=== PATIENT | male | born 1960 | race Caucasian/White ===

== ENCOUNTER 2021-09-18 11:10 | Outpatient (CLI) | payer OTHER | END 2021-09-18 11:11 | disposition home or self-care (01) | LOC: RAD 11:10 | PROVIDERS: ATTEND Family Medicine | DX: F17.200 Nicotine dependence, unspecified, uncomplicated (principal) | CPT/HCPCS: 71046 ==

== ENCOUNTER 2023-07-05 11:32 | Outpatient (CLI) | payer BC | END 2023-07-05 11:33 | disposition home or self-care (01) | LOC: BICRAD 11:32 | PROVIDERS: ATTEND Family Medicine | DX: M54.2 Cervicalgia (principal); M47.812 Spondylosis without myelopathy or radiculopathy, cervical region | CPT/HCPCS: 72040 ==

== ENCOUNTER 2025-04-29 15:17 | Inpatient (IN) | payer BC ==
[~2025-04-29 15:17] MED LIST: Iopamidol 370 76% 100 ML VIAL ONE
[2025-04-29] MEDS ORDERED: Heparin 25,000 UNITS/D5W 500 ml bag ONE (15:30)
[2025-04-29 15:36] LABS: #Basophils 0.05 10x3/uL (0.0-0.2); #Eosinophils 0.36 10x3/uL (0.0-0.7); #Monocytes 0.58 10x3/uL (0.11-0.59); #Neutrophils 4.20 10x3/uL (1.40-6.50); %Basophils 0.6 % (0.0-1.0); %Eosinophils 4.7 % (0.0-10.0); %Lymphocytes 32.6 % (21.0-51.0); %Monocytes 7.5 % (0.0-10.0); %Neutrophils 54.5 % (42.0-75.0); Hematocrit 42.2 % (42.0-52.0); Hemoglobin 14.3 g/dL (14.0-18.0); Mean Corpuscular Hemoglobin 29.7 pg (27.0-31.0); Mean Corpuscular Volume 87.7 fL (78.0-98.0); Platelet Count 266 10x3/uL (130-400); Red Blood Cell (RBC) Count 4.81 mill/uL (4.70-6.10); White Blood Cell (WBC) Count 7.72 10x3/uL (4.8-10.8)
[2025-04-29 15:54] LABS: ALT (SGPT) 21 U/L (Less than 45); AST (SGOT) 21 U/L (11-34); Albumin 4.0 g/dL (3.1-4.5); Alkaline Phosphatase 77 U/L (40-110); Anion Gap 14 mmol/L (10-20); BUN (Urea Nitrogen) 24 mg/dL (8.4-25.7); Bilirubin, Total 0.6 mg/dL (0.3-1.2); Calc. Creatinine Clearance 0 mL/min (70-130); Calcium 9.2 mg/dL (7.8-10.44); Carbon Dioxide 23 mmol/L (23-31); Chloride 107 mmol/L (98-107); Globulin 2.9 g/dL (2.4-3.5); Glucose 112 mg/dL (80-115); Potassium 3.7 mmol/L (3.5-5.1); Sodium 140 mmol/L (136-145)
[2025-04-29 16:03] LABS: INR-International Normal Ratio 1.1; Prothrombin Time 14.3 sec (12.0-14.7)
[2025-04-29 16:21] LABS: PTT Greater than 250.0 sec (22.9-36.1)
[2025-04-29] MEDS ORDERED: TICAGRELOR 90 MG TABLET ONE (16:28)
[2025-04-29] MEDS ORDERED: Milk Of Magnesia 30 ML UDCUP PO PRN (16:33)
[2025-04-29 17:21] VITALS: BMI 27.1
[2025-04-29] MEDS ORDERED: Melatonin 3 MG TAB PO PRN (18:24)
[2025-04-29] MEDS ORDERED: Acetaminophen 325 MG TAB PO PRN (18:24)
[2025-04-29] MEDS ORDERED: Calcium Carbonate 500 MG ChewTAB PO PRN (18:24)
[2025-04-29] MEDS ORDERED: Senokot S 8.6-50 MG TAB PO PRN (18:24)
[2025-04-29] MEDS ORDERED: Ondansetron PF 4 MG/2 ML Vial IVP PRN (18:24)
[2025-04-29] MEDS: Famotidine 20 MG TAB PO SCH (20:42)
[2025-04-29] MEDS: TICAGRELOR 90 MG TABLET PO SCH (20:42)
[2025-04-30 03:28] LABS: #Basophils 0.06 10x3/uL (0.0-0.2); #Eosinophils 0.50 10x3/uL (0.0-0.7); #Monocytes 0.84 10x3/uL (0.11-0.59); #Neutrophils 6.04 10x3/uL (1.40-6.50); %Basophils 0.6 % (0.0-1.0); %Eosinophils 5.0 % (0.0-10.0); %Lymphocytes 25.7 % (21.0-51.0); %Monocytes 8.4 % (0.0-10.0); %Neutrophils 60.1 % (42.0-75.0); Hematocrit 39.7 % (42.0-52.0); Hemoglobin 13.1 g/dL (14.0-18.0); Mean Corpuscular Hemoglobin 30.0 pg (27.0-31.0); Mean Corpuscular Volume 90.8 fL (78.0-98.0); Platelet Count 231 10x3/uL (130-400); Red Blood Cell (RBC) Count 4.37 mill/uL (4.70-6.10); White Blood Cell (WBC) Count 10.04 10x3/uL (4.8-10.8)
[2025-04-30 04:15] LABS: ALT (SGPT) 20 U/L (Less than 45); AST (SGOT) 41 U/L (11-34); Albumin 3.5 g/dL (3.1-4.5); Alkaline Phosphatase 67 U/L (40-110); Anion Gap 13 mmol/L (10-20); BUN (Urea Nitrogen) 16 mg/dL (8.4-25.7); Bilirubin, Total 0.5 mg/dL (0.3-1.2); Calc. Creatinine Clearance 94 mL/min (70-130); Calcium 8.4 mg/dL (7.8-10.44); Carbon Dioxide 20 mmol/L (23-31); Chloride 112 mmol/L (98-107); Globulin 2.6 g/dL (2.4-3.5); Glucose 110 mg/dL (80-115); Potassium 3.7 mmol/L (3.5-5.1); Sodium 141 mmol/L (136-145)
[2025-04-30] MEDS: Sacubitril 24MG/Valsartan 26 MG TAB PO SCH (08:53)
[2025-04-30] MEDS: Metoprolol Succinate XL 25 MG ER.TAB PO SCH (08:53)
[2025-04-30] MEDS: Dapagliflozin Propanediol 10 MG TAB PO SCH (08:53)
[2025-04-30] MEDS: Enoxaparin 40 MG (0.4 mL) SYRINGE SC SCH (08:54)
[2025-04-30] MEDS: Aspirin 81 mg Enteric Coated Tablet PO SCH (08:54)
[2025-04-30] MEDS ORDERED: Lisinopril 2.5 MG TAB PO SCH (09:00)
[2025-04-30 11:14] VITALS: BMI 24.7
[2025-05-01 05:20] LABS: #Basophils 0.05 10x3/uL (0.0-0.2); #Eosinophils 0.40 10x3/uL (0.0-0.7); #Monocytes 0.89 10x3/uL (0.11-0.59); #Neutrophils 6.14 10x3/uL (1.40-6.50); %Basophils 0.5 % (0.0-1.0); %Eosinophils 4.0 % (0.0-10.0); %Lymphocytes 24.5 % (21.0-51.0); %Monocytes 9.0 % (0.0-10.0); %Neutrophils 61.8 % (42.0-75.0); Hematocrit 42.8 % (42.0-52.0); Hemoglobin 14.3 g/dL (14.0-18.0); Mean Corpuscular Hemoglobin 29.5 pg (27.0-31.0); Mean Corpuscular Volume 88.4 fL (78.0-98.0); Platelet Count 265 10x3/uL (130-400); Red Blood Cell (RBC) Count 4.84 mill/uL (4.70-6.10); White Blood Cell (WBC) Count 9.94 10x3/uL (4.8-10.8)
[2025-05-01 05:36] LABS: Anion Gap 13 mmol/L (10-20); BUN (Urea Nitrogen) 15 mg/dL (8.4-25.7); Calc. Creatinine Clearance 87 mL/min (70-130); Calcium 9.0 mg/dL (7.8-10.44); Carbon Dioxide 23 mmol/L (23-31); Chloride 109 mmol/L (98-107); Glucose 97 mg/dL (80-115); Potassium 3.9 mmol/L (3.5-5.1); Sodium 141 mmol/L (136-145)
[2025-05-01] MEDS: Spironolactone 25 MG TAB PO SCH (08:45)
[2025-05-02 08:30] LABS: Anion Gap 14 mmol/L (10-20); BUN (Urea Nitrogen) 20 mg/dL (8.4-25.7); Calc. Creatinine Clearance 80 mL/min (70-130); Calcium 9.5 mg/dL (7.8-10.44); Carbon Dioxide 24 mmol/L (23-31); Chloride 106 mmol/L (98-107); Glucose 142 mg/dL (80-115); Potassium 4.0 mmol/L (3.5-5.1); Sodium 140 mmol/L (136-145)
[2025-05-03 08:43] LABS: Anion Gap 13 mmol/L (10-20); BUN (Urea Nitrogen) 27 mg/dL (8.4-25.7); Calc. Creatinine Clearance 75 mL/min (70-130); Calcium 9.5 mg/dL (7.8-10.44); Carbon Dioxide 23 mmol/L (23-31); Chloride 108 mmol/L (98-107); Glucose 129 mg/dL (80-115); Potassium 4.1 mmol/L (3.5-5.1); Sodium 140 mmol/L (136-145)
[2025-05-03 08:47] VITALS: BP 133/74; TEMP 98.2
== END 2025-05-03 14:08 | disposition home or self-care (01) | DRG 322 ==
LOC: ERS 15:17 → CCL 15:31 → CCU 17:06 → 2NO 04-30 14:41
PROVIDERS: ADMIT Internal Medicine Cardiovascular Disease; ATTEND Internal Medicine
PROC: 027034Z Dilation of Coronary Artery, One Artery with Drug-eluting Intraluminal Device, Percutaneous Approach (ICD-10-PCS; principal; 2025-04-29)
PROC: B240ZZ3 Ultrasonography of Single Coronary Artery, Intravascular (ICD-10-PCS; 2025-04-29)
DX: I21.09 ST elevation (STEMI) myocardial infarction involving other coronary artery of anterior wall (principal); I50.22 Chronic systolic (congestive) heart failure; E78.5 Hyperlipidemia, unspecified; Z72.0 Tobacco use; Z98.890 Other specified postprocedural states; I25.5 Ischemic cardiomyopathy; I11.0 Hypertensive heart disease with heart failure; I25.10 Atherosclerotic heart disease of native coronary artery without angina pectoris
CPT/HCPCS: 36415; 71045; 80048; 80053; 83880; 84484; 85025; 85347; 85610; 85730; 93005; 93010; 93306; 93458; 93798; 94760; 97139; 99152; 99153; C1753; C1760; C1769; C1874; C1887; C1894; J1644; J1650; J2250; J3010; J7030; Q9967